=== PATIENT | female | born 1965 | race Caucasian/White ===

== ENCOUNTER 2016-07-17 05:15 | Emergency (ER) | payer BC, MEDICAID ==
--- NOTE | 2016-07-17 05:30 | EDM.PDOC ---
ED HPI Trauma - General Chief Complaint: Lower Extremity Injury/Pain Stated Complaint: Left Foot Pain Time Seen by Provider: 07/17/16 05:22 Source: Reports: Patient, Family, RN, RN notes reviewed History Limitations: Reports: No limitations - History of Present Illness INITIAL COMMENTS - FREE TEXT/NARRATIVE: Patient presents to the ED at [facility] complaining of left foot pain and injury. Patient states she was walking into her house when she ran into her ottoman. Patient states he foot got caught underneath. She is complaining of left lateral foot pain. She has injured her left foot in the past. Patient states it hurts to bare weight. Symptom Onset Date: 07/16/16 Symptom Onset Time: 20:00 Occurred When: yesterday Occurred Where: home Method of Injury: direct blow Severity: moderate Pain/Injury Location: Reports: lower extremity, left Consciousness: Reports: no loss of consciousness Associated Symptoms: Reports: no other symptoms Review of Systems - Review of Systems Review Of Systems: See Below Constitutional: Denies: chills, fever, weakness Respiratory: Denies: shortness of breath, cough Cardiovascular: Denies: chest pain, palpitations Musculoskeletal: Reports: foot pain (left foot), joint pain, joint swelling Skin: Reports: no symptoms Neurological: Reports: no symptoms. Denies: numbness, paresthesia, tingling Trauma Exam - Physical Exam Exam: See Below Exam Limited By: No limitations General Appearance: Reports: alert, no apparent distress Head: Reports: atraumatic, normocephalic Respiratory Exam: Reports: no respiratory distress, lungs clear, normal breath sounds Cardiovascular: Reports: regular rate, rhythm Extremities: Reports: pain with movement, tenderness, unable to bear weight. Denies: bony-point tenderness Neurologic: Reports: alert, oriented x 3 Skin: Reports: Normal color, Warm/dry - [place] Coma Score Best Eye Response ([place]): (4) open spontaneously Best Verbal Response ([place]): (5) oriented Best Motor Response ([place]): (6) obeys commands [place] Total: 15 Course - Orders/Labs/Meds Orders: Active Orders 24 hr Category Date Time Status Foot Comp Min 3V Lt [CR] Stat Exams 07/17/16 06:01 Taken DME for Discharge [COMM] Routine Oth 07/17/16 06:17 Ordered - Radiology Interpretation Free Text/Narrative:: Fracture Proximal 1/3 shaft of 5th metatarsal left foot Departure - Departure Time of Disposition: 06:18 Disposition: Home, Self-Care 01 Condition: good Clinical Impression: Metatarsal bone fracture Qualifiers: Encounter type: initial encounter Metatarsal bone: fifth Fracture type: closed Fracture alignment: nondisplaced Laterality: left Qualified Code(s): S92.355A - Nondisplaced fracture of fifth metatarsal bone, left foot, initial encounter for closed fracture Instructions: Metatarsal Fracture Referrals: Radha Sage MD [Physician] - Forms: ED Department Discharge Additional Instructions: 1. Rest, elevate, and ice left foot several times a day 2. May alternate Tylenol/Advil as needed for pain 3. Wear MEDINA wrap to help control swelling 4. [facility] will call you to set up the Podiatry appointment 5. See your Primary as symptoms warrant 6. Use Walker boot when ambulating; may take it off when elevating foot to rest - Problem List Review Problem List Initiated/Reviewed/Updated: Yes - My Orders Last 24 Hours: My Active Orders 07/17/16 06:01 Foot Comp Min 3V Lt [CR] Stat 07/17/16 06:17 DME for Discharge [COMM] Routine - Assessment/Plan Last 24 Hours: My Active Orders 07/17/16 06:01 Foot Comp Min 3V Lt [CR] Stat 07/17/16 06:17 DME for Discharge [COMM] Routine
[2016-07-17 07:49] VITALS: BP 130/93
== END 2016-07-17 06:30 | disposition home or self-care (01) ==
LOC: VM.ED 05:15 → SUPCPDRO 05:15 → VM.ED 06:30
DX: S92.355A Nondisplaced fracture of fifth metatarsal bone, left foot, initial encounter for closed fracture (principal); X58.XXXA Exposure to other specified factors, initial encounter; Y92.009 Unspecified place in unspecified non-institutional (private) residence as the place of occurrence of the external cause
CPT/HCPCS: 73630-LT; 99283